=== PATIENT | female | born 1985 | race Caucasian/White ===

== ENCOUNTER 2019-06-06 07:28 | Day surgery (SDC) | payer OTHER ==
[2019-06-06] MEDS ORDERED: SOD CHLORIDE 0.9% 1,000 ML IV (10:30)
[2019-06-06] MEDS ORDERED: CEFAZOLIN 2 GM/50 ML (PMX) 50 ML IVPB (10:30)
[2019-06-06] MEDS ORDERED: FENTAnyl 50 MCG/ML VIAL IV ×3 (11:30)
[2019-06-06] MEDS ORDERED: ALBUTEROL 0.083% (NEB) 2.5 MG/3 ML AMP HHN (11:30)
[2019-06-06] MEDS ORDERED: METOCLOPRAMIDE 10 MG INJ IV (11:30)
[2019-06-06] MEDS ORDERED: HYDROmorphONE 1 MG/5 ML IV SYRINGE IV (11:30)
[2019-06-06] MEDS ORDERED: GLYCOPYRROLATE 0.4 MG INJ (11:49)
[2019-06-06] MEDS ORDERED: DESFLURANE 15 MIN (11:49)
[2019-06-06] MEDS ORDERED: FENTAnyl 50 MCG/ML VIAL ×2 (11:49→13:05)
[2019-06-06] MEDS ORDERED: ROPIVACAINE 0.5 % 30 ML VIAL (11:50)
[2019-06-06] MEDS ORDERED: DEXAMETHASONE 4 MG/ML 5 ML INJ (12:20)
[2019-06-06] MEDS ORDERED: PROPOFOL 20 ML (12:20)
[2019-06-06] MEDS ORDERED: CEFAZOLIN 1 GM INJ (12:20)
[2019-06-06] MEDS ORDERED: ROCURONIUM 50 MG INJ (12:20)
[2019-06-06] MEDS ORDERED: SUGAMMADEX SODIUM 200 MG/2 ML VIAL IV (12:20)
[2019-06-06] MEDS ORDERED: SUCCINYLCHOLINE CHLORIDE 100 MG/5 ML SYG IV (12:20)
[2019-06-06] MEDS ORDERED: LIDOCAINE 100 MG SYRINGE (12:20)
[2019-06-06] MEDS: BUPIVACAINE 0.5%/EPI (SDV) 30 ML INJ (12:29)
[2019-06-06] MEDS ORDERED: IBUPROFEN 600 MG TAB PO (13:00)
[2019-06-06] MEDS ORDERED: morphine 2 MG INJ IV (13:00)
[2019-06-06] MEDS ORDERED: ONDANSETRON 4 MG INJ IV (13:00)
[2019-06-06] MEDS ORDERED: HYDROCODONE/APAP (5/325) TAB PO ×2 (13:00)
[2019-06-06] MEDS: HYDROmorphONE 1 MG/5 ML IV SYRINGE IV ×2 (13:16→13:21)
[2019-06-06] MEDS: ONDANSETRON 4 MG INJ IV (13:16)
[2019-06-06] MEDS: DIPHENHYDRAMINE 50 MG INJ IV (13:16)
[2019-06-06] MEDS: MEPERIDINE 25 MG INJ IV (13:16)
== END 2019-06-06 15:40 | disposition home or self-care (01) ==
LOC: SDS 07:28
DX: K80.10 Calculus of gallbladder with chronic cholecystitis without obstruction (principal); K66.0 Peritoneal adhesions (postprocedural) (postinfection)
CPT/HCPCS: 47562; 88304